=== PATIENT | female | born 1990 | race African-American/Black ===

== ENCOUNTER 2024-05-03 14:38 | Emergency (ER) | payer BC, SELFPAY ==
[2024-05-03 14:49] VITALS: BP 140/105
[2024-05-03 16:27] VITALS: BP 131/74
[2024-05-03 17:25] VITALS: BMI 38.8
--- NOTE | 2024-05-03 17:44 | ED.GENMED ---
History of Present Illness
General
Chief Complaint: Psychiatric Problem
Time Seen by Provider: 05/03/24 17:24
History of Present Illness
History of Present Illness:
33-year-old female with history of anxiety, depression, OCD presenting to the emergency department for anxiety and depression. Patient reports today she has been feeling increasingly anxious and states that she 'wants to disappear '. She notes
that she is going through a break-up with her boyfriend. She texted her mom and told her that she no longer wanted to live, however presently denies any suicidal or homicidal ideations. Notes that she has had history of cutting herself, however
without intention to kill herself. She denies chest pain or difficulty breathing. She denies fever. She denies abdominal pain or vomiting. She takes Ativan as needed as needed for her anxiety, however did not take any today. Denies additional
acute complaints
Phy Exam
Physical Exam
Physical Exam:
General: Well-appearing, no clinical signs of dehydration, nontoxic and in no acute distress
HEENT: protecting airway
Neck: appears supple
CV: Normal heart rate, regular rhythm
Resp: No accessory muscle use, no increased work of breathing, lungs clear to auscultation bilaterally
Abd: No distention
Extremities: No deformities, no swelling
Neuro: alert, no focal neurologic deficit
: deferred
Rectal: deferred
Psych: Hyperventilating, anxious, tearful
Skin: Intact
Course
Orders/Labs/Results
Orders:
Orders
05/03/24 14:57
Crisis Consult Urgent
Reason for Consult: anxiety
05/03/24 17:43
Lorazepam [Ativan] 1 mg PO NOW STA
Vital Signs
Initial and Last Documented VS:
Initial Vital Signs
Temp Pulse Resp BP Pulse Ox
98.8 F 128 18 140/105 99
05/03/24 14:49 05/03/24 14:49 05/03/24 14:49 05/03/24 14:49 05/03/24 14:49
Last Documented Vital Signs
Temp Pulse Resp BP Pulse Ox
98.8 F 84 18 131/74 100
05/03/24 14:49 05/03/24 16:27 05/03/24 16:27 05/03/24 16:27 05/03/24 16:27
MDM/Problems Addressed
MDM/Problems Addressed:
33-year-old female presenting to the emergency department with anxiety and depression. Vital signs on arrival are significant for tachycardia, however resolved without intervention.
On exam, patient is no acute distress, however does appear very anxious, hyperventilating and tearful. She is presently denying suicidal thoughts or intention. At present time, patient appears to be having a panic attack, does not appear to be a
present threat to herself. Will consult with crisis team.
18:50 - Patient seen by crisis, recommending outpatient resources. Patient is from [place], so recommending resources in [place]. Patient has a prescription for antianxiety medications at her pharmacy already, prescribed by her PCP. Do not feel
medication at this time. Patient continued to deny suicidal ideation or plan for self-harm. Do not feel patient requires inpatient therapy. Feel stable for discharge. Return precautions discussed and patient verbalized understanding
*Critical Care Note
Total Time (30-74mins, 75-104mins- exclusive of procedures): Not Applicable
ED Attending Note
-
Portions of this chart may have been created with voice recognition software.� Occasional wrong word or��sound alike� substitutions may have occurred due to the inherent limitations of voice recognition software.
Discharge Plan
Departure
Referrals:
NONE,* [Family Provider] -
Interventions
Interventions:
*Risk Screen - Suicide Last Done: 05/03/24 14:49
*General Assessment Last Done: 05/03/24 14:49
*Neglect/Abuse Screening Last Done: 05/03/24 17:25
ED- Fall Risk Assessment Last Done: 05/03/24 17:25
*ED COVID-19 Vaccine History Last Done: 05/03/24 14:49
ED-Psychological Assessment Last Done: 05/03/24 17:25
Discharge Date and Time
Print Language: ALBAN[place]
[2024-05-03] MEDS: ATIVAN 1 MG PO ×2 (17:52→20:08)
[2024-05-03 19:37] VITALS: BP 125/84
== END 2024-05-03 20:15 | disposition home or self-care (01) ==
LOC: EMR 14:38
PROVIDERS: EMERGENCY PHYSICIAN Student in an Organized Health Care Education/Training Program
DX: F41.8 Other specified anxiety disorders (principal); F41.0 Panic disorder [episodic paroxysmal anxiety]; F42.9 Obsessive-compulsive disorder, unspecified; Z91.52 Personal history of nonsuicidal self-harm
CPT/HCPCS: 99282